=== PATIENT | female | born 1940 | race Caucasian/White ===

== ENCOUNTER 2020-06-19 00:06 | Inpatient (IN) | payer MEDICARE, OTHER ==
[2020-06-19] MEDS ORDERED: Diltiazem 125 MG/25 ML ONE (00:17)
[2020-06-19 03:21] LABS: Hemoglobin 10.9 g/dL (12.0-16.0); Mean Corpuscular HGB CONC 30.9 g/dL (32.0-36.0); Mean Corpuscular Hemoglobin 26.3 pg (27.0-31.0); Mean Corpuscular Volume 85.1 fL (78.0-98.0); Platelet Count 6 thou/uL (130-400); RBC Distribution Width 15.2 % (11.5-14.5); Red Blood Cell (RBC) Count 4.15 mill/uL (4.20-5.40); Reflex for Review?? NO; White Blood Cell (WBC) Count 94.4 thou/uL (4.8-10.8)
[2020-06-19 03:22] LABS: ALT (SGPT) 20 U/L (8-55); AST (SGOT) 36 U/L (5-34); Albumin 3.4 g/dL (3.4-4.8); Alkaline Phosphatase 191 U/L (40-110); Anion Gap 14 mmol/L (10-20); BUN (Urea Nitrogen) 27 mg/dL (9.8-20.1); Band 1 % (5-11); Bilirubin, Total 3.2 mg/dL (0.2-1.2); Calc. Creatinine Clearance 0 mL/min (70-130); Calcium 9.8 mg/dL (7.8-10.44); Carbon Dioxide 21 mmol/L (23-31); Chloride 98 mmol/L (98-107); Estimated GFR-MDRD 57; Globulin 3.7 g/dL (2.4-3.5); Glucose 110 mg/dL (83-110); Lymphocytes 10 % (21-51); MDiff Complete? YES; Metamyelocyte 2 % (0-0); Monocytes 68 % (0-10); Neutrophil 19 % (42-75); Platelet Morphology Comment Appears Decreased; Potassium 3.8 mmol/L (3.5-5.1); Protein, Total 7.1 g/dL (6.0-8.3); Sodium 129 mmol/L (136-145)
[2020-06-19 03:32] VITALS: BMI 18.2
[2020-06-19 04:56] LABS: Troponin I 0.033 ng/mL (< 0.028)
[2020-06-19] MEDS ORDERED: Sodium Chloride 0.9% 500 ML IVPB SCH (05:45)
[2020-06-19] MEDS ORDERED: Ondansetron PF 4 MG/2 ML Vial IVP PRN (09:07)
--- NOTE | 2020-06-19 09:25 | RAD ---
XR Chest 1 View HISTORY: Neutrophilia COMPARISON: 06/18/2020 FINDINGS: New bibasilar opacities have developed as the previous study. The heart size normal. No pne umothoraces or pleural effusions are seen IMPRESSION: Findings suspicious for pneumonia
--- NOTE | 2020-06-19 09:56 | HP ---
CHIEF COMPLAINT: Transferred to our ER with concern for elevated white cell count. HISTORY OF PRESENT ILLNESS: The patient is an 79-year-old female with past medical history of hypertension, who presented to her primary care doctor with complaints of fever. Her initial workup revealed an elevated WBC count of 98,000. She was given a dose of vancomycin and subsequently transferred to the ER. En route, the patient was found to be in AFib with RVR, which was known to her. Her heart rate was in the 180s. She was placed on Cardizem drip in the ER, which led to control for heart rate. Subsequently, the patient's rhythm was converted back to sinus rhythm spontaneously and low blood pressure was noted and Cardizem drip was subsequently discontinued. PAST MEDICAL HISTORY: Hypertension. PAST SURGICAL HISTORY: Cholecystectomy. SOCIAL HISTORY: The patient denies alcohol use, illicit drug use, or smoking. FAMILY HISTORY: Positive for lymphoma in her mother. REVIEW OF SYSTEMS: Negative except as noted in HPI. PHYSICAL EXAMINATION: GENERAL: The patient is currently afebrile and does not appear to be in any distress. HEENT: Head is normocephalic and atraumatic. Extraocular muscles are intact. NECK: Supple. CHEST: Clear to auscultation bilaterally. CARDIOVASCULAR: Revealed normal S1 and S2. No murmurs, rubs, or gallops. ABDOMEN: Soft, nontender, nondistended. NEUROLOGIC: Unremarkable. ASSESSMENT: 1. Leukocytosis with differential diagnosis including leukemia and lymphoma. 2. New onset atrial fibrillation. 3. Hypertension. PLAN: The patient will be admitted to the hospital. We will transfuse platelets due to platelet level being less than 10,000 and a possible need for bone marrow biopsy. No indication for RBC transfusion at this time as her H and H are stable. We will send a blood smear for pathologist review and obtain flow cytometry. Consult Oncology for possible bone marrow biopsy. Also obtain chest x-ray to rule out intrathoracic masses. The patient is currently in sinus rhythm. I will start metoprolol tartrate in case she returned to atrial fibrillation. I would not start anticoagulation at this time due to the patient risk of bleeding, but we will start the patient on aspirin instead. Job ID: [id number]
[2020-06-19 12:39] LABS: INR-International Normal Ratio 1.4; PTT 40.5 sec (22.9-36.1); Prothrombin Time 16.7 sec (12.0-14.7)
[2020-06-19] MEDS ORDERED: Fentanyl 100 MCG/2 ML VIAL ONE (13:10)
[2020-06-19] MEDS ORDERED: Sodium Bicarbonate 2.5 MEQ/5 ML VIAL ONE (13:11)
[2020-06-19] MEDS ORDERED: Midazolam HCl 2 mg/2 ml Vial ONE (13:11)
[2020-06-19] MEDS ORDERED: Sodium Chloride 0.9% 1,000 ML IV SCH (13:15)
[2020-06-19] MEDS ORDERED: cefTRIAXone\\ROCEPHIN 1 GM in Sodium Chloride 0.9% 100 ML IVPB SCH (14:00)
[2020-06-19] MEDS ORDERED: Azithromycin 500 MG in Sodium Chloride 0.9% 250 ML 250 ML IVPB SCH (15:00)
[2020-06-19] MEDS ORDERED: URSODIOL 250 MG PO SCH (15:00)
--- NOTE | 2020-06-19 15:11 | CT ---
CT CHEST WITH CONTRAST CLINICAL INDICATION: Thrombocytopenia and leukocytosis. COMPARISON: CT abdomen on 06/06/2020 FINDINGS: Aorta: Mild vascular calcifications. Thoracic aorta is normal in caliber. Lungs: There has been interval development of a moderate right and small left pleural effusions with associated passive atelectasis. A 1.1 cm pulmonary nodule is seen in the anterior superior right middle lobe with a few additional sm all subcentimeter nodules also seen in the right middle lobe. There are scattered 4 mm pulmonary nodules seen in the left upper lobe. Interstitial thickening and groundglass as well as patchy parenchymal densities are seen at each lung base and in a perihilar location but also predominantly at each lung base which may be related to infectious process and possibly atypical infectious process. There is a small irregular pleural-based density at the lateral aspect right upper lung zone. This co uld be related to mild scarring. Mediastinum: Nonspecific mildly prominent precarinal lymph node is seen measuring 1.2 cm in short axi s dimension. This may be reactive in origin. Small pericardial effusion is seen. Thyroid gland: An 8 mm low-density nodule with central calcification is seen in the left lobe of thyr oid gland. Osseous structures: Minimal degenerative change seen in the spine. Chest wall: No abnormality visualized. Upper abdomen: Multiple tiny subcentimeter too small to characterize hypodense lesions are seen in ea ch lobe of the liver. Minimal amount of intrahepatic biliary duct dilatation is seen in the visualized right hepatic lobe and to lesser extent in the left hepatic lobe likely related to reservo ir effect. IMPRESSION: 1. Findings worrisome for infectious process with bilateral perihilar groundglass densities as well a s interstitial thickening predominantly involving the midlung zones and greater at each lung base. 2. Dominant pulmonary nodule right middle lobe measuring 11 mm with additional small subcentimeter no dular densities in the right middle lobe as well as left upper lobe. Smaller nodular densities could potentially be related to infectious process as well. However, the more dominant pulmonary nodu le should be further evaluated with PET CT examination after resolution of lung changes. 3. Moderate right and small left pleural effusion. 4. Small pericardial effusion. 5. Minimal ascites. 6. Stable subcentimeter hypodense lesions in each lobe of the liver with evidence of intrahepatic deepika iary duct dilatation likely attributable to reservoir effect.
--- NOTE | 2020-06-19 15:13 | CT ---
CT GUIDED RIGHT ILIAC BONE MARROW ASPIRATION AND BIOPSY: CLINICAL HISTORY: Leukocytosis and thrombocytopenia. PROCEDURE: The procedure including the risks and complications were explained to the patient, and informed conse nt was obtained. The patient was placed on the CT scan table in the prone position. Noncontrasted CT images were obtained through the pelvis. An area was marked overlying the RIGHT uzma c bone, and the area was meticulously prepped and draped in usual sterile fashion. The skin and subcutaneous tissues were infiltrated with buffered 1% lidocaine for local anesthesia. After a small skin incision was made, an 11-gauge needle was advanced and positioning was confirmed w ith axial CT images. Approximately 9 milliliters of bone marrow aspirate was obtained. The needle was then further advanced, and a bone marrow biopsy was performed. The needle was removed, and hemost asis was achieved with direct pressure. The patient tolerated the procedure well and without immediate complication. The patient was transported to radiology nurses holding area for further angely toring prior to discharge. IMPRESSION: Technically successful percutaneous bone marrow aspiration and biopsy. Pathology results are pending.
[2020-06-19] MEDS ORDERED: Iopamidol 370 76% 100 ML VIAL ONE (15:43)
[2020-06-19] MEDS: Ursodiol 300 MG CAP PO SCH ×2 (16:08→20:19)
[2020-06-19 19:15] VITALS: BP 124/60
[2020-06-19] MEDS ORDERED: Ibuprofen 200 MG TAB PO PRN (19:45)
[2020-06-19] MEDS ORDERED: Metoprolol Tartrate 25 MG TAB PO SCH (21:00)
[2020-06-19] MEDS ORDERED: Hydroxyurea 500 MG CAP PO SCH (21:00)
[2020-06-19] MEDS ORDERED: Famotidine 20 MG TAB PO SCH (21:00)
[2020-06-19 21:23] VITALS: TEMP 100.3
--- NOTE | 2020-06-19 22:39 | CON ---
DATE OF CONSULTATION: REASON FOR CONSULTATION: Leukocytosis and thrombocytopenia. HISTORY OF PRESENT ILLNESS: Ms. Olivier is an 79-year-old female with past medical history of autoimmune neutropenia originally diagnosed in 2011. She has been followed by Dr. Maldonado, last seen in August 2019. She developed a fever and presented to the emergency room at [facility] in [place], [place]. Her fever was as high as 100.8. A CBC drawn in the emergency room noted a white count of 98.4, hemoglobin of 10.1, and a platelet count of 22,000. She did have a COVID-19 test which was negative. She was having cough, fever, but no other symptoms. She was slightly tachycardic and given IV fluids. 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 On arrival, she was noted to be in atrial fibrillation with RVR. She was placed on a Cardizem drip and converted back to sinus rhythm. She had hypotension, so the Cardizem drip was discontinued. Repeat CBC here confirmed a white count of 94.4, hemoglobin of 10.9, and a platelet count of 6000. She did receive a unit of platelets. She underwent a bone marrow biopsy this morning and also had a chest CT. Chest CT showed bilateral perihilar ground-glass densities concerning for infectious process. She has been getting IV antibiotics. The patient was seen at bedside. Her daughter was present on the speaker telephone. PAST MEDICAL HISTORY: 1. 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 2. Hypertension. 3. Osteoporosis. 4. History of cirrhosis. 5. Colon polyps. PAST SURGICAL HISTORY: 1. KATIE. 2. Cataract surgery. 3. Tubal ligation. 4. Cholecystectomy. ALLERGIES: TYLENOL AND HYDROCODONE. HOME MEDICATIONS: Amlodipine and Ursodiol. FAMILY HISTORY: No history of blood disorder. Her mother of lymphoma at the age of 91. SOCIAL HISTORY: . She has 3 children. No alcohol, tobacco, or illicit drug use. REVIEW OF SYSTEMS: A 10-point review of systems is negative except for noted in HPI. PHYSICAL EXAMINATION: VITAL SIGNS: Temperature is 100.1, pulse is 93, respiratory rate 17, BP is 129/ 64. She is 96% on room air. GENERAL: Thin female, in no acute distress. HEENT: Normocephalic and atraumatic. Pupils are equal and reactive to light. NECK: Supple. CV: Regular rate and rhythm. LUNGS: Clear anterior. ABDOMEN: Soft. NEUROLOGIC: Nonfocal. PERTINENT LABS AND X-RAYS: WBCs 94.4, hemoglobin 10.9, hematocrit 35.3, platelet count 6000, 19% neutrophils, 1% bands, 10% lymphocytes, 68% monocytes, 2% metamyelocytes. Peripheral smear shows immature monocytic cells suggestive of leukemic process. PT 16.7, INR is 1.4, PTT is 40.5. Sodium 129, potassium 3.8, chloride 98, CO2 is 21, BUN is 27, creatinine 0.94, glucose 110, calcium 9.8, bilirubin is 3.2, AST is 36, ALT is 20, alkaline phosphatase is 191. Troponin is 0.033. Serum total protein is 7.1, albumin 3.4, globulin 3.7. Radiology, per HPI. ASSESSMENT: Acute leukemia with monocytosis. DISCUSSION: Case has been discussed in detail with Dr. Page. 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 Bone marrow biopsy is completed and flow cytometry is pending and should be back tomorrow. We started the patient on allopurinol 300 mg daily and hydroxyurea 500 mg b.i.d. We have initiated transfer to [facility] as the patient lives in the [place] area. Her daughter lives in [place]. I will continue antibiotics and provide supportive care until transfer is complete. Thank you for the consult. Job ID: [id number] MTDD
[2020-06-20] MEDS ORDERED: Non-Formulary Item 1 EACH (Amlodipine Besylate [Amlodipine Besylate] 2.5 MG) PO SCH (09:00)
[2020-06-20] MEDS ORDERED: Amlodipine 5 MG TAB PO SCH (09:00)
[2020-06-20] MEDS ORDERED: Allopurinol 300 MG TAB PO SCH (09:00)
[2020-06-20] MEDS ORDERED: Aspirin 81 mg Enteric Coated Tablet PO SCH (09:00)
--- NOTE | 2020-06-21 12:26 | CT ---
"PRELIMINARY REPORT" CT GUIDED RIGHT ILIAC BONE MARROW ASPIRATION AND BIOPSY: CLINICAL HISTORY: Leukocytosis and thrombocytopenia. PROCEDURE: The procedure including the risks and complications were explained to the patient, and informed conse nt was obtained. The patient was placed on the CT scan table in the prone position. Noncontrasted CT images were obtained through the pelvis. An area was marked overlying the RIGHT uzma c bone, and the area was meticulously prepped and draped in usual sterile fashion. The skin and subcutaneous tissues were infiltrated with buffered 1% lidocaine for local anesthesia. After a small skin incision was made, an 11-gauge needle was advanced and positioning was confirmed w ith axial CT images. Approximately 9 milliliters of bone marrow aspirate was obtained. The needle was then further advanced, and a bone marrow biopsy was performed. The needle was removed, and hemost asis was achieved with direct pressure. The patient tolerated the procedure well and without immediate complication. The patient was transported to radiology nurses holding area for further agnely toring prior to discharge. IMPRESSION: Technically successful percutaneous bone marrow aspiration and biopsy. Pathology results are pending. Transcribed Date/Time: 06/21/2020 12:26 PM
== END 2020-06-19 22:00 | disposition short-term general hospital (02) | DRG 836 ==
LOC: ERS 00:06 → 2NO 01:05
PROVIDERS: ADMIT Internal Medicine; ATTEND Internal Medicine
PROC: 07DR3ZX Extraction of Iliac Bone Marrow, Percutaneous Approach, Diagnostic (ICD-10-PCS; principal; 2020-06-19)
DX: C92.00 Acute myeloblastic leukemia, not having achieved remission (principal); I48.91 Unspecified atrial fibrillation; I10 Essential (primary) hypertension; D69.6 Thrombocytopenia, unspecified; M81.0 Age-related osteoporosis without current pathological fracture; D46.9 Myelodysplastic syndrome, unspecified; Z20.828 Contact with and (suspected) exposure to other viral communicable diseases; I95.9 Hypotension, unspecified; Z79.01 Long term (current) use of anticoagulants; Z90.49 Acquired absence of other specified parts of digestive tract; Z88.5 Allergy status to narcotic agent; Z86.010 Personal history of colon polyps; Z98.51 Tubal ligation status; Z98.42 Cataract extraction status, left eye; Z98.41 Cataract extraction status, right eye; Z90.710 Acquired absence of both cervix and uterus; Z88.6 Allergy status to analgesic agent; Z88.8 Allergy status to other drugs, medicaments and biological substances
CPT/HCPCS: 20225; 36415; 36430; 71045; 71260; 77002; 80053; 84484; 85025; 85060; 85097; 85610; 85730; 86850; 86900; 86901; 88184; 88185; 88237; 88264; 88280; 88305; 88311; 93005; 93010; J0456; J0696; J2250; J3010; J3490; J7030; J7050; P9035; Q9967